=== PATIENT | female | born 1980 | race Two or more races ===

== ENCOUNTER 2023-10-26 16:00 | Emergency (ER) | payer MEDICAID ==
[~2023-10-26] VITALS: Ht 162.6 cm; Wt 70.0 kg
[2023-10-26 16:05] VITALS: BP 159/91; PULSE 107; RESP 14; TEMP 98.6; O2SAT 97
[2023-10-26] MEDS: LIDOCAINE HCL/PF 1% 10 MG/ML 5ML VIAL INFIL NR (16:45)
[2023-10-26] MEDS: BACITRACIN ZINC OINT UDPKT TOP NR (16:45)
[2023-10-26] MEDS: LIDOCAINE HCL/PF 1% 10 MG/ML 5ML VIAL INFIL ONE (16:45)
[2023-10-26] MEDS ORDERED: TETANUS, DIPHTHERIA, PERTUSSIS VAC/PF 0.5ML (>10YR OLD) IM ONE (16:45)
[2023-10-26] MEDS ORDERED: BACITRACIN ZINC OINT UDPKT TOP ONE (16:45)
[2023-10-26] MEDS ORDERED: BO1 TP (19:20)
[2023-10-26] MEDS: TETANUS, DIPHTHERIA, PERTUSSIS VAC/PF 0.5ML (>10YR OLD) IM ONE (20:43)
== END 2023-10-26 22:45 | disposition home or self-care (01) ==
LOC: ER 16:31
DX: S01.01XA Laceration without foreign body of scalp, initial encounter (principal); S09.90XA Unspecified injury of head, initial encounter; E11.9 Type 2 diabetes mellitus without complications; X58.XXXA Exposure to other specified factors, initial encounter; Y93.89 Activity, other specified; Y92.89 Other specified places as the place of occurrence of the external cause; Y99.8 Other external cause status
CPT/HCPCS: 73120; 70450; 70486; 90715; 12001; 90471; 99285; Z7610

== ENCOUNTER 2023-11-01 13:08 | Emergency (ER) | payer MEDICAID ==
[~2023-11-01] VITALS: Ht 154.9 cm; Wt 91.0 kg
[~2023-11-01 13:08] MED LIST: BO1 TP
[2023-11-01 13:12] VITALS: BP 148/72; PULSE 90; TEMP 98.3; O2SAT 100
[2023-11-01 15:46] VITALS: RESP 17
== END 2023-11-01 15:45 | disposition home or self-care (01) ==
LOC: ER 13:08
DX: S01.01XD Laceration without foreign body of scalp, subsequent encounter (principal); E11.9 Type 2 diabetes mellitus without complications; Z48.00 Encounter for change or removal of nonsurgical wound dressing; X58.XXXD Exposure to other specified factors, subsequent encounter
CPT/HCPCS: 99281